=== PATIENT | male | born 1985 | race Caucasian/White ===

== ENCOUNTER → 2024-08-08 08:53 | Outpatient (BNVA) | payer OTHER, SELFPAY | PROVIDERS: PCP Nurse Practitioner Family; Visit Provider Clinical Nurse Specialist Adult Health | DX: J02.9 Acute pharyngitis, unspecified (principal); M54.50 Low back pain, unspecified; J06.9 Acute upper respiratory infection, unspecified | CPT/HCPCS: 87071; 87880 ==